=== PATIENT | female | born 1965 | race Caucasian/White ===

== ENCOUNTER 2020-07-18 13:07 | Emergency (ER) | payer OTHER | END 2020-07-18 14:27 | disposition home or self-care (01) | LOC: JVIRT 13:07 | DX: Z03.818 Encounter for observation for suspected exposure to other biological agents ruled out (principal) | CPT/HCPCS: C9803; G2012-GT; U0003 ==

== ENCOUNTER 2021-04-16 13:00 | Emergency (ER) | payer OTHER ==
[2021-04-16 13:39] VITALS: BP 117/65; PULSE 78; TEMP 98.3; BMI 29.0
[2021-04-16] MEDS ORDERED: KETOROLAC TROMETHAMINE 15 MG/ML VIAL IM ONE (15:18)
[2021-04-16] MEDS ORDERED: KETOROLAC TROMETHAMINE 30 MG/1 ML VIAL ONE (15:19)
[2021-04-16] MEDS ORDERED: ACETAMINOPHEN 500 MG TABLET (FP) PO ONE (15:50)
[2021-04-16] MEDS ORDERED: ACETAMINOPHEN 325 MG TABLET (FP) ONE (15:52)
[2021-04-16 18:23] LABS: HIV INTERPRETATION NEGATIVE (NEGATIVE)
== END 2021-04-16 16:40 | disposition home or self-care (01) ==
LOC: FER 13:00
PROC: 0H99XZZ Drainage of Perineum Skin, External Approach (ICD-10-PCS; principal; 2021-04-16)
PROC: 3E023GC Introduction of Other Therapeutic Substance into Muscle, Percutaneous Approach (ICD-10-PCS; principal; 2021-04-16)
DX: N75.0 Cyst of Bartholin's gland (principal)
CPT/HCPCS: 36415; 86803; 87389; 99284-25